=== PATIENT | male | born 1940 | race Caucasian/White ===

== ENCOUNTER 2018-07-29 13:40 | Outpatient (CLI) | payer MEDICARE, BC ==
--- NOTE | 2018-07-29 16:20 | MRI ---
MRI CERVICAL SPINE WITHOUT CONTRAST 07/29/18 HISTORY: Radiculopathy. COMPARISON: Cervical spine MRI from 2007. FINDINGS: The cerebellar tonsils terminate at the level of the foramen magnum. No prevertebral hematoma. No mar row infiltrative process. Cord signal appears normal. Paraspinal musculature is normal. No significant cervical adenopathy. The flow voids are maintained. Levels are as follows: C2-3: Mild uncinate process hypertrophy. No neural foraminal or spinal canal narrowing. Moderate face t arthropathy on the left. C3-4: Mild disc desiccation. Moderate facet arthrosis on the right and severe on the left. Mild ligam entum flavum hypertrophy. Spinal canal measures approximately 9 mm. Moderate left and mild right side d neural foraminal narrowing. C4-5: Moderate uncinate process hypertrophy. Moderate left sided facet arthropathy. No significant ne ural foraminal or spinal canal narrowing. C5-6: Mild disc desiccation. Moderate bilateral facet arthrosis. No neural foraminal or spinal canal narrowing. C6-7: Mild uncinate process hypertrophy. Moderate facet arthrosis. There is edema within the left art icular pillar. No significant neural foraminal or spinal canal narrowing. IMPRESSION: Mild multilevel spondylosis as described. POS: [facility]
== END 2018-07-29 13:41 | disposition home or self-care (01) ==
LOC: TBSIIMAG 13:40
PROVIDERS: ATTEND Neurological Surgery
DX: M47.22 Other spondylosis with radiculopathy, cervical region (principal)
CPT/HCPCS: 72141

== ENCOUNTER 2019-05-18 11:04 | Day surgery (SDC) | payer MEDICARE, BC ==
[2019-05-15 13:19] VITALS: BMI 25.7
[~2019-05-18 11:04] MED LIST: Glycopyrrolate 0.2 MG/ML 5 ML SYRINGE ONE; Lidocaine 1% PF 5 ML VIAL ONE; Ondansetron PF 4 MG/2 ML Vial ONE; PROPOFOL 200 MG/20 ML VIAL ONE; Rocuronium Bromide 10 MG/ML (10ML VIAL) ONE; ePHEDrine/0.9% NaCl/PF SYRINGE 50 mg/10 ml ONE
[2019-05-18] MEDS ORDERED: Indomethacin 50 MG SUPP ONE (12:51)
[2019-05-18] MEDS ORDERED: Iothalamate Meglumine 60% 50 ML VIAL FS ONE (12:51)
[2019-05-18] MEDS ORDERED: Fentanyl 100 MCG/2 ML VIAL ONE (13:13)
--- NOTE | 2019-05-18 14:19 | RAD ---
ERCP: 05/18/2019 COMPARISON: 12/31/2013 HISTORY: ERCP FINDINGS: Cholecystectomy clips are present. The common bile duct is dilated. There is a filling defe ct within the distal aspect of the common bile duct on image 1 of 7. This persists on image 2 and image 3. Later imaging demonstrates inflation of a balloon within a dilated common bile duct. The deandre ling defect seen on the initial imaging is not seen on the later imaging. Contrast media extends into the stomach and duodenum, possibly extending into the region of a duodenal diverticulum. IMPRESSION: Dilated common bile duct with distal CBD filling defect suggesting choledocholithiasis.
[2019-05-18] MEDS ORDERED: HYDROcodone/Acetaminophen 5/325 mg Tablet ONE (15:09)
--- NOTE | 2019-05-18 17:21 | OP ---
DATE OF PROCEDURE: 05/18/2019 PROCEDURES PERFORMED: Endoscopic retrograde cholangiopancreatography with sphincterotomy and stone extraction. PREMEDICATION: Given by Anesthesiology Department. PREPROCEDURE DIAGNOSES: 1. Right upper quadrant pain, associated with fever and chills, suspecting choledocholithiasis with cholangitis. 2. History of choledocholithiasis. POSTPROCEDURE DIAGNOSES: 1. Single stone, choledocholithiasis. 2. Dilated common bile duct. DESCRIPTION OF PROCEDURE: Written consents were obtained prior to procedure. After adequate sedation, the side-viewing endoscope was advanced down the stomach through pylorus into duodenum. The ampulla was visualized with changes of previous sphincterotomy; however, the opening appears to be stenotic with some difficulty in locating. Once located, the sphincterotome was able to pass up to common bile duct. Injection contrast showed a dilated common bile duct approximately 15 mm tapering toward the distal duct. A single overfilling defect was noted in the distal duct. The intrahepatic biliary system was filled and appeared normal. The previous sphincterotomy was extended with a sphincterotome with good hemostasis. A 15 mm balloon was then used to sweep the duct. The balloon was then used to sweep the distal duct. Multiple yellow cholesterol type debris was noted. Repeat cholangiogram performed was normal. There was good flow of contrast. The instruments were therefore removed. The patient tolerated the procedure well. ASSESSMENT: 1. Choledocholithiasis, no evidence of cholangitis. 2. Status post sphincterotomy extension and extraction. PLAN: We will discharge to home. Job ID: [id number]
== END 2019-05-18 15:20 | disposition home or self-care (01) ==
LOC: SDC 11:04
PROVIDERS: ATTEND Internal Medicine Gastroenterology
PROC: 0F798ZZ Dilation of Common Bile Duct, Via Natural or Artificial Opening Endoscopic (ICD-10-PCS; principal; 2019-05-18)
PROC: 0FC98ZZ Extirpation of Matter from Common Bile Duct, Via Natural or Artificial Opening Endoscopic (ICD-10-PCS; 2019-05-18)
DX: K80.51 Calculus of bile duct without cholangitis or cholecystitis with obstruction (principal); Z79.899 Other long term (current) drug therapy; Z88.6 Allergy status to analgesic agent
CPT/HCPCS: 74330; J3010

== ENCOUNTER 2022-01-19 08:18 | Outpatient (CLI) | payer MEDICARE, BC | END 2022-01-19 08:19 | disposition home or self-care (01) | LOC: RAD 08:18 | PROVIDERS: ATTEND Internal Medicine Gastroenterology | DX: R13.10 Dysphagia, unspecified (principal); K86.1 Other chronic pancreatitis; K86.89 Other specified diseases of pancreas | CPT/HCPCS: 74220 ==

== ENCOUNTER 2023-09-20 13:56 | Day surgery (SDC) | payer MEDICARE ==
[2023-09-20] MEDS ORDERED: Acetaminophen 500 MG TAB ONE (14:53)
[2023-09-20] MEDS ORDERED: diphenhydrAMINE 25 MG CAP ONE (14:53)
[2023-09-20] MEDS: diphenhydrAMINE 25 MG CAP PO SCH (14:53)
[2023-09-20] MEDS: Acetaminophen 500 MG TAB PO SCH (14:53)
[2023-09-20 17:17] VITALS: BP 158/70; TEMP 97.8
== END 2023-09-20 17:28 | disposition home or self-care (01) ==
LOC: ONC/OP 13:56
PROVIDERS: ATTEND Internal Medicine Hematology & Oncology
DX: D64.9 Anemia, unspecified (principal); D69.6 Thrombocytopenia, unspecified; Z88.6 Allergy status to analgesic agent; Z88.8 Allergy status to other drugs, medicaments and biological substances
CPT/HCPCS: 36430; 86850; 86900; 86901; 86920; P9016